=== PATIENT | female | born 1960 | race Caucasian/White ===

== ENCOUNTER → 2017-08-11 | Outpatient (CLI) | payer MEDICAID ==
[~2017-08-11] MED LIST: ACETAMINOPHEN325 M2 PO; BUSPAR 10MG TAB10 MG PO; CELEXA20 MG PO; COGENTIN GENERIC1 MG PO; DEPAKOTE 500MG500 MG PO; DIAZEPAM5 M1 PO; ESTRADIOL1 MG PO; GABAPENTIN 600600 MG PO; GEMFIBROZIL600 MG PO; HALOPERIDOL1 MG PO; HYDROCODONE-APA1 TA1 PO; MOBIC7.5 MG PO; NATURAL FISH1000 MG PO; NICODERM C21 MG/24 H TD; NICOTINE PATCH;21 MG TD; OMEPRAZOLE20 MG PO; PREDNISONE 20MG20 MG PO; TRAZADONE HYDR100 MG PO; TRAZODONE150 MG PO; VENTOLIN H0.09 MG/AC IH; VOLTAREN75 MG PO; ZITHROMAX Z PA250 MG PO; ZOCOR40 MG PO; ZOLOFT 50MG TAB50 MG PO; ZOLOFT100 M1 PO
--- NOTE | 2017-08-11 13:42 | CARDIOVASCULAR REPORT ---
"Cerebrovascular Exam Indications: 433.10 Occlusion/stenosis of carotid artery without cerebral infarction. IMPRESSIONS 1. The bilateral vertebral arteries are patent with normal antegrade flow. 2. Study suggests less than 20% stenosis involving the right internal carotid artery. 3. Study suggests 20-49% stenosis involving the left internal carotid artery. No change from the study of 20-May-2014. History: Risk factors: Current tobacco use. Dizziness Carotid duplex study. Complete study and Doppler flow study including spectral analysis, color and gonzalez scale imaging. Location: Vascular laboratory. Patient status: Outpatient. Tables: Arterial flow: + +--------+---------+ |Location |V sys |V ed | + +--------+---------+ |Right CCA - proximal|88.8cm/s|26.7cm/s | + +--------+---------+ |Right CCA - distal |81.7cm/s|-27.5cm/s| + +--------+---------+ |Right ECA |69.9cm/s|---------| + +--------+---------+ |Right ICA - proximal|76.2cm/s|17.3cm/s | + +--------+---------+ |Right ICA - mid |63.6cm/s|25.1cm/s | + +--------+---------+ |Right ICA - distal |99.8cm/s|-39.3cm/s| + +--------+---------+ |Right vertebral |46.4cm/s|---------| + +--------+---------+ |Left CCA - proximal |87.2cm/s|24.4cm/s | + +--------+---------+ |Left CCA - distal |96.6cm/s|28.3cm/s | + +--------+---------+ |Left ECA |77cm/s |---------| + +--------+---------+ |Left ICA - proximal |123cm/s |38.5cm/s | + +--------+---------+ |Left ICA - mid |96.6cm/s|23.6cm/s | + +--------+---------+ |Left ICA - distal |80.1cm/s|29.9cm/s | + +--------+---------+ |Left vertebral |53.4cm/s|---------| + +--------+---------+ Velocity ratios: + + + + + | |Right, V sys|Left, V sys|Left, V ed| + + + + + |Max ICA/dist CCA|1.22 |1.27 |1.36 | + + + + + (Report amended ) Electronically signed by: Alexander Bowles [id number]"
== END ==
LOC: RT 13:00
DX: R42 Dizziness and giddiness (principal)